=== PATIENT | female | born 1970 | race Caucasian/White ===

== ENCOUNTER 2016-11-20 05:56 | Day surgery (SDC) | payer BC ==
[2016-11-20] MEDS ORDERED: Lactated Ringers 1,000 ML IV SCH (06:30)
[2016-11-20 06:45] VITALS: O2SAT 96
[2016-11-20] MEDS ORDERED: DIPRIVAN 200 MG/20 ML IV ONE (08:00)
[2016-11-20] MEDS ORDERED: Ephedrine Sulfate 50 MG/ML IV ONE (08:00)
[2016-11-20] MEDS ORDERED: SUBLIMAZE 100 MCG/2 ML IV ONE (08:00)
[2016-11-20] MEDS ORDERED: Versed 2 MG/2 ML Injection IV ONE (08:00)
[2016-11-20] MEDS ORDERED: Lactated Ringers 1,000 ML IV ONE (08:02)
--- NOTE | 2016-11-20 09:31 | OP ---
SURGERY DATE/TIME: 11/20/2016 0739 PREOPERATIVE DIAGNOSIS: Follow up history of colon polyps. POSTOPERATIVE DIAGNOSES: 1) Sigmoid colon polyp. 2) Poor bowel prep. PROCEDURE: Colonoscopy. SURGEON: Shahzad Salvador M.D. ANESTHESIA: MAC by Tate Alejandre CRNA. ESTIMATED BLOOD LOSS: Minimal. SPECIMENS: Hot forceps polypectomy of sigmoid colon polyp x1. DESCRIPTION OF PROCEDURE: After informed written consent was obtained, the patient was taken to the endoscopy suite. She underwent monitored anesthesia and digital rectal exam showed normal sphincter tone and no internal lesions. The scope was inserted in the rectum and sequentially the entire colonic mucosa was traversed. The level of cecum was reached and verified with direct visualization of ileocecal valve. Upon withdrawal careful mucosal inspection revealed areas of poor bowel prep with semi-solid stool and liquid stool and then there were other areas that were fairly well clear. There were no obvious mucosal abnormalities until I reached the distal sigmoid colon. There was a small sessile polyp which was removed in its entirety with hot forceps with good hemostasis and entire removal of the lesions. Prior to withdrawal retroflexion showed no internal lesions. The scope was removed and the patient was transferred to the recovery room in excellent condition.
[2016-11-20 09:32] VITALS: BP 103/59; PULSE 52
== END 2016-11-20 09:35 | disposition home or self-care (01) ==
LOC: SDC 05:56
PROVIDERS: ATTEND Family Medicine
PROC: 0DBN8ZX Excision of Sigmoid Colon, Via Natural or Artificial Opening Endoscopic, Diagnostic (ICD-10-PCS; principal; 2016-11-20)
DX: D12.5 Benign neoplasm of sigmoid colon (principal); Z86.010 Personal history of colon polyps
CPT/HCPCS: 00810; 36415; 88305; J2250; J2704; J3010

== ENCOUNTER 2018-02-22 01:39 | Emergency (ER) | payer BC ==
[2018-02-22] MEDS ORDERED: Sodium Chloride 0.9% 1000 ML 1,000 ML IV STA (01:59)
[2018-02-22 02:06] VITALS: BP 105/66; PULSE 75; O2SAT 98
--- NOTE | 2018-02-22 02:10 | ERPHSYRPT ---
- History of Present Illness Time Seen by Provider: 02/22/18 02:08 Source: patient Exam Limitations: no limitations Patient Subjective Stated Complaint: feeling poorly since friday.. has had a migraine and generalized numbness. Triage Nursing Assessment: alert and oriented. concerned about numbness since gerring a migraine on friday.. concerned becaouse of hx of family illnesses. neuro intact. ELÍAS. denies N/V. states stopped taking her nerve pill 3 weeks ago. Physician History: 47-year-old female came to the emergency room with complaining of generalized weakness, left side numbness in the hand and feet, and headache. Patient has not been feeling well for last 2-3 weeks and states that she has a lots of stressors at home including her mom's health. She is also complaining of frequency of urination. She denies any chest pain, nausea, vomiting or diarrhea. Timing/Duration: day(s) (3 days) Severity: mild Character of Deficits: altered sensation, LUE Deficits: no difficulties Baseline/Normal Cognition: alert oriented x 3 Current Cognition: alert oriented x 3 Associated Symptoms: fatigue, weakness, paresthesia, headache Allergies/Adverse Reactions: hydrocodone bitartrate [From Vicodin] Adverse Reaction (Mild, Verified 11/20/16 06:31) Nausea and Vomiting Home Medications: Solifenacin Succinate [Vesicare] 10 mg PO DAILY 11/18/16 [History] Varenicline Tartrate [Chantix] 0.5 mg PO BID 11/18/16 [History] Hx Tetanus, Diphtheria Vaccination/Date Given: No Hx Influenza Vaccination/Date Given: No Hx Pneumococcal Vaccination/Date Given: Yes - Review of Systems Constitutional: No Fever, No Chills Eyes: No Symptoms Ears, Nose, & Throat: No Symptoms Respiratory: No Cough, No Dyspnea Cardiac: No Chest Pain, No Edema, No Syncope Abdominal/Gastrointestinal: No Abdominal Pain, No Nausea, No Vomiting, No Diarrhea Genitourinary Symptoms: No Dysuria Musculoskeletal: No Back Pain, No Neck Pain Skin: No Rash Neurological: No Dizziness, No Focal Weakness, No Sensory Changes Psychological: No Symptoms Endocrine: No Symptoms All Other Systems: Reviewed and Negative - Past Medical History Pertinent Past Medical History: Yes Neurological History: No Pertinent History ENT History: No Pertinent History Cardiac History: No Pertinent History Respiratory History: No Pertinent History Endocrine Medical History: No Pertinent History Musculoskeletal History: No Pertinent History GI Medical History: GERD, Polyps, Ulcer, Other History: No Pertinent History Psycho-Social History: No Pertinent History Female Reproductive Disorders: Abnormal Uterine Bleeding Other Medical History: R KNEE SURGERY 2013 - Past Surgical History Past Surgical History: Yes Neuro Surgical History: No Pertinent History Cardiac: No Pertinent History Respiratory: No Pertinent History Gastrointestinal: Cholecystectomy Genitourinary: No Pertinent History Musculoskeletal: Orthopedic Surgery Female Surgical History: Hysterectomy Other Surgical History: hiatal hernia repair. right knee reconstructions - Social History Smoking Status: Current every day smoker How long have you smoked: 22yrs Exposure to second hand smoke: No Drug Use: none Patient Lives Alone: No Significant Family History: no pertinent family hx - Female History Hx Now: No - Nursing Vital Signs Nursing Vital Signs: Initial Vital Signs Temperature 98.4 F 02/22/18 01:56 Pulse Rate 75 02/22/18 01:56 Respiratory Rate 18 02/22/18 01:56 Blood Pressure 105/66 02/22/18 01:56 O2 Sat by Pulse Oximetry 98 02/22/18 01:56 Pain Scale Pain Intensity 5 - Tate Coma Scale Best Eye Response (Tate): (4) open spontaneously Best Verbal Response (Tate): (5) oriented Best Motor Response (Mario Alberto): (6) obeys commands Tate Total: 15 - Physical Exam General Appearance: no apparent distress, alert Eye Exam: bilateral eye: PERRL, EOMI Ears, Nose, Throat Exam: normal ENT inspection, moist mucous membranes Neck Exam: normal inspection, non-tender, supple Respiratory: normal breath sounds, lungs clear, airway intact, No respiratory distress Cardiovascular: regular rate/rhythm, No edema Gastrointestinal: soft, No tenderness, No distention Back Exam: normal inspection Extremity Exam: normal inspection, No pedal edema 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, 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: tongue midline Coordination/Gait: normal finger to nose, normal gait Skin Exam: normal color, warm, dry, No rash SpO2: 98 Oxygen Delivery: Room Air - Course Nursing assessment & vital signs reviewed: Yes - CT Exams Head CT Interpretation: Tele-radiologist Report (no acute abnormality) Ordered Tests: Active Orders 24 hr Category Date Time Status EKG-ER Only STAT Care 02/22/18 01:59 Active HEAD WITHOUT CONTRAST [CT] Stat Exams 02/22/18 02:00 Taken CBC W DIFF Stat Lab 02/22/18 02:11 Completed CMP Stat Lab 02/22/18 02:11 Completed CULTURE,URINE Stat Lab 02/22/18 03:34 Received MAGNESIUM Stat Lab 02/22/18 02:11 Completed TROPONIN Stat Lab 02/22/18 02:11 Completed UA W/ MICROSCOPIC Stat Lab 02/22/18 03:34 Completed Medication Summary Generic Name Dose Route Start Last Admin Trade Name Freq PRN Reason Stop Dose Admin Ceftriaxone Sodium/Dextrose 1 g in 50 mls @ 100 mls/hr 02/22/18 03:52 Rocephin 1 Gm-D5w 50 Ml Bag IV 02/22/18 04:21 STAT STA Discontinued Medications Generic Name Dose Route Start Last Admin Trade Name Freq PRN Reason Stop Dose Admin Sodium Chloride 1,000 mls @ 999 mls/hr 02/22/18 01:59 02/22/18 02:15 Sodium Chloride 0.9% 1000 Ml IV 02/22/18 02:59 999 mls/hr .Q1H1M STA Administration Sodium Chloride Confirm 02/22/18 02:14 Sodium Chloride 0.9% 1000 Ml Administered 02/22/18 02:15 Dose 1,000 mls @ ud .ROUTE .STK-MED ONE Lab/Rad Data: Laboratory Result Diagrams 02/22/18 02:11 02/22/18 02:11 Laboratory Results 02/22/18 02/22/18 02/22/18 Range/Units 03:34 02:11 02:11 WBC (4.0-10.5) K/mm3 RBC (4.1-5.4) M/mm3 Hgb (12.0-16.0) gm/dl Hct (35-47) % MCV (78-100) fl MCH (26-32) pg MCHC (32-36) g/dl RDW (11.5-14.0) % Plt Count (150-450) K/mm3 MPV (6-9.5) fl Gran % (36.0-66.0) % Eos # (Auto) (0-0.5) Absolute Lymphs (auto) (1.0-4.6) Absolute Monos (auto) (0.0-1.3) Lymphocytes % (24.0-44.0) % Monocytes % (0.0-12.0) % Eosinophils % (0.00-5.0) % Basophils % (0.0-0.4) % Absolute Granulocytes (1.4-6.9) Basophils # (0-0.4) Sodium 142 (137-145) mmol/L Potassium 4.0 (3.5-5.1) mmol/L Chloride 104 (98-107) mmol/L Carbon Dioxide 27 (22-30) mmol/L Anion Gap 14.8 (5-15) MEQ/L BUN 13 (7-17) mg/dL Creatinine 0.63 (0.52-1.04) mg/dL Estimated GFR > 60.0 ML/MIN Glucose 105 (74-106) mg/dL Calcium 9.5 (8.4-10.2) mg/dL Magnesium 2.2 (1.6-2.3) mg/dL Total Bilirubin 0.20 (0.2-1.3) mg/dL AST 19 (14-36) U/L ALT 17 (0-35) U/L Alkaline Phosphatase 112 (38-126) U/L Troponin I < 0.012 (0.000-0.034) ng/mL Serum Total Protein 7.4 (6.3-8.2) g/dL Albumin 4.3 (3.5-5.0) g/dL Ur Collection Type VOID Urine Color YELLOW (YELLOW) Urine Appearance CLEAR (CLEAR) Urine pH 6.0 (5-6) Ur Specific [place] 1.020 (1.005-1.025) Urine Protein NEGATIVE (Negative) Urine Ketones NEGATIVE (NEGATIVE) Urine Blood 50 (0-5) Bj/ul Urine Nitrite NEGATIVE (NEGATIVE) Urine Bilirubin NEGATIVE (NEGATIVE) Urine Urobilinogen NORMAL (0-1) mg/dL Ur Leukocyte Esterase NEGATIVE (NEGATIVE) Urine Microscopic RBC 2-5 (0-2) /HPF Urine Microscopic WBC 2-5 (0-5) /HPF Ur Epithelial Cells MODERATE (FEW) /HPF Urine Bacteria MODERATE (NEGATIVE) /HPF Urine Mucus MODERATE (NEGATIVE) /HPF Urine Culture Reflexed YES (NO) Urine Glucose NEGATIVE (NEGATIVE) mg/dL Specimen Received 02/22/18 0335 02/22/18 Range/Units 02:11 WBC 8.8 (4.0-10.5) K/mm3 RBC 4.34 (4.1-5.4) M/mm3 Hgb 13.6 (12.0-16.0) gm/dl Hct 41.0 (35-47) % MCV 94.5 (78-100) fl MCH 31.3 (26-32) pg MCHC 33.2 (32-36) g/dl RDW 12.7 (11.5-14.0) % Plt Count 221 (150-450) K/mm3 MPV 10.7 H (6-9.5) fl Gran % 55.6 (36.0-66.0) % Eos # (Auto) 0.13 (0-0.5) Absolute Lymphs (auto) 2.98 (1.0-4.6) Absolute Monos (auto) 0.76 (0.0-1.3) Lymphocytes % 34.0 (24.0-44.0) % Monocytes % 8.7 (0.0-12.0) % Eosinophils % 1.5 (0.00-5.0) % Basophils % 0.2 (0.0-0.4) % Absolute Granulocytes 4.88 (1.4-6.9) Basophils # 0.02 (0-0.4) Sodium (137-145) mmol/L Potassium (3.5-5.1) mmol/L Chloride (98-107) mmol/L Carbon Dioxide (22-30) mmol/L Anion Gap (5-15) MEQ/L BUN (7-17) mg/dL Creatinine (0.52-1.04) mg/dL Estimated GFR ML/MIN Glucose (74-106) mg/dL Calcium (8.4-10.2) mg/dL Magnesium (1.6-2.3) mg/dL Total Bilirubin (0.2-1.3) mg/dL AST (14-36) U/L ALT (0-35) U/L Alkaline Phosphatase (38-126) U/L Troponin I (0.000-0.034) ng/mL Serum Total Protein (6.3-8.2) g/dL Albumin (3.5-5.0) g/dL Ur Collection Type Urine Color (YELLOW) Urine Appearance (CLEAR) Urine pH (5-6) Ur Specific [place] (1.005-1.025) Urine Protein (Negative) Urine Ketones (NEGATIVE) Urine Blood (0-5) Jb/ul Urine Nitrite (NEGATIVE) Urine Bilirubin (NEGATIVE) Urine Urobilinogen (0-1) mg/dL Ur Leukocyte Esterase (NEGATIVE) Urine Microscopic RBC (0-2) /HPF Urine Microscopic WBC (0-5) /HPF Ur Epithelial Cells (FEW) /HPF Urine Bacteria (NEGATIVE) /HPF Urine Mucus (NEGATIVE) /HPF Urine Culture Reflexed (NO) Urine Glucose (NEGATIVE) mg/dL Specimen Received - Progress Progress: improved Counseled pt/family regarding: lab results, diagnosis, need for follow-up, rad results - Departure Time of Disposition: 03:54 Departure Disposition: Home Clinical Impression: Stress and adjustment reaction UTI (urinary tract infection) Qualifiers: Urinary tract infection type: acute pyelonephritis Qualified Code(s): N10 - Acute pyelonephritis Condition: Stable Critical Care Time: No Referrals: MAYNOR MANUEL MD [Primary Care Provider] - Instructions: Urinary Tract Infections in Adults, Anxiety, Adult (DC) Additional Instructions: URINARY TRACT INFECTION 1. You will need to drink plenty of fluids in order to keep your urinary system flushed. These fluids should mainly consist of water and juices. 2. Take medications as directed. You need to completely finish any antiobiotic prescription given. 3. Try to avoid coffee, tea, alcohol, and seasoned foods as they may cause bladder irritation. 4. If signs and symptoms persist after 3-4 days, you will need to follow up with your family physician. 5. Female Patients: A. Avoid intercourse for 3-4 days. B. Empty bladder before and after intercourse to reduce risk of re- infection. C. After emptying bladder, wipe from front to back to reduce the risk of re- infection. DES TEE SHERON was seen on 02/22/18 n the Emergency Room. At that time you were treated for an emergent condition, during your visit Laboratory, Radiology and/or other procedures may have been ordered. It is very important that you follow-up with your Primary Care Physician MAYNOR MANUEL within the next 24-48 hours to review your Emergency Room visit and the final results of testing that was ordered. Some test results such as Urine Cultures, Blood Cultures, and other cultures if ordered will not be finalized for 24-48 hours. If you do not have a Primary Care Provider please call the medical records department at [phone] to obtain a copy of your results or you may sign into our patient portal to obtain these results by visiting us @ [email or web address] and completing the following steps: 1. Click on the Patient Portal link 2. Click the Patient Self Enrollment Link to complete the enrollment form and entering your 3. Once the enrollment form is completed you will receive an email with a temporary ID and password at the email address you provided. 4. Next choose a user name and password. Your user name must be at least 4 characters long and your password must be at least 4 characters long. 5. Choose a security question from the list and provide your answer to the question. If you already have signed into the Health Portal you may access your Health Care Information 28/04 by the following steps: 1. Login to our website @ [email or web address] 2. Enter your original user name and password. FAQS The [facility] Health Portal is an online tool that contains your Lab Results, Radiology Reports, Visit History, Discharge Instructions and Health Summary Lab and Radiology Results will not be available for 72 hours on the portal. The Portal is a secure site, passwords are encryted and URLs are re-written so they cannot be copied and pasted. You and authorized family members are the only ones who can access your Portal. Also there is a timeout feature that protects your information if you leave the Portal page open. If you have technical difficulty please use the Contact Us link on the page this will allow you to submit any questions you have regarding the Portal or you may contact the Medical Record Department at [phone]. Prescriptions: Smz/Tmp Ds Tablet [Bactrim Ds Tablet] 1 udtab PO BID #20 tablet ALPRAZolam [Xanax ER 0.5MG] 0.5 mg PO QHS #30 tablet
[2018-02-22] MEDS ORDERED: Sodium Chloride 0.9% 1000 ML 1,000 ML ONE (02:14)
[2018-02-22 02:18] LABS: BASOPHIL % 0.2 % (0.0-0.4); Basophil (Absolute #) 0.02 (0-0.4); Eosinophil % 1.5 % (0.00-5.0); Eosinophil (Absolute #) 0.13 (0-0.5); Granulocyte Absolute (ANC) 4.88 (1.4-6.9); Granulocytes % 55.6 % (36.0-66.0); Hemoglobin 13.6 gm/dl (12.0-16.0); Lymphocyte (Absolute #) 2.98 (1.0-4.6); Mean Cell Volume 94.5 fl (78-100); Mean Corpuscular Hemoglobin 31.3 pg (26-32); Mean Corpuscular Hgb Concent. 33.2 g/dl (32-36); Mean Platelet Volume 10.7 fl (6-9.5); Monocyte (Absolute #) 0.76 (0.0-1.3); Monocytes % 8.7 % (0.0-12.0); Platelet Count 221 K/mm3 (150-450); Red Blood Count 4.34 M/mm3 (4.1-5.4); Red Cell Distribution Width 12.7 % (11.5-14.0); White Blood Count 8.8 K/mm3 (4.0-10.5)
[2018-02-22 02:39] LABS: ALBUMIN 4.3 g/dL (3.5-5.0); ALKALINE PHOSPHATASE 112 U/L (38-126); ANION GAP 14.8 MEQ/L (5-15); BLOOD UREA NITROGEN 13 mg/dL (7-17); CHLORIDE 104 mmol/L (98-107); Calcium 9.5 mg/dL (8.4-10.2); Carbon Dioxide 27 mmol/L (22-30); Creatinine 1 0.63 mg/dL (0.52-1.04); Glucose 105 mg/dL (74-106); SGOT/AST 19 U/L (14-36); SGPT/ALT 17 U/L (0-35); SODIUM 142 mmol/L (137-145); Total Protein 7.4 g/dL (6.3-8.2)
[2018-02-22 03:47] LABS: Appearance CLEAR (CLEAR); Bacteria MODERATE /HPF (NEGATIVE); Bilirubin NEGATIVE (NEGATIVE); Blood 50 Ery/ul (0-5); Epithelial Cells MODERATE /HPF (FEW); Glucose NEGATIVE (NEGATIVE); Ketones NEGATIVE (NEGATIVE); Leukocyte Esterase NEGATIVE (NEGATIVE); Mucus MODERATE /HPF (NEGATIVE); Nitrite NEGATIVE (NEGATIVE); Protein,Urine Dip NEGATIVE (Negative); Urobilinogen NORMAL mg/dL (0-1)
[2018-02-22] MEDS ORDERED: ROCEPHIN 1 Gm-D5w 50 ml Bag** 1 G/50 ML IVPB IV STA (03:52)
[2018-02-22] MEDS ORDERED: Ativan 2 MG/1 ML VIAL IV ONE (03:58)
[2018-02-22] MEDS ORDERED: Ativan 2 MG/1 ML VIAL ONE (04:01)
[2018-02-22] MEDS ORDERED: ROCEPHIN 1 Gm-D5w 50 ml Bag** 1 G/50 ML IVPB IV ONE (04:01)
--- NOTE | 2018-02-22 12:24 | XRAY ---
Indication: Hand and leg numbness. Blurred vision. Multiple contiguous axial images obtained through the head without contrast. Comparison: February 08, 2011. Again normal appearing brain parenchyma, ventricles, and bony calvarium. Visualized paranasal sinuses and mastoid air cells are clear. Impression: Normal CT head without contrast exam. Comment: Preliminary interpretation was made by [facility]. No discrepancy. CTDI 69.11
== END 2018-02-22 04:48 | disposition home or self-care (01) ==
LOC: ED 01:39
DX: F43.9 Reaction to severe stress, unspecified (principal); F43.20 Adjustment disorder, unspecified; N10 Acute pyelonephritis; R20.0 Anesthesia of skin; R51 Headache; R35.0 Frequency of micturition; R53.1 Weakness; Z79.899 Other long term (current) drug therapy
CPT/HCPCS: 36000; 36415; 70450; 80053; 81000; 83735; 84484; 85025; 87077; 87086; 87186; 93005; 96360; 96374; 96375; 99284; J0696; J2060

== ENCOUNTER 2019-08-25 06:23 | Day surgery (SDC) | payer BC ==
[2019-08-25] MEDS ORDERED: Lactated Ringers 1,000 ML IV ONE (06:56)
[2019-08-25] MEDS ORDERED: Lactated Ringers 1,000 ML IV SCH (07:00)
[2019-08-25 07:21] LABS: BASOPHIL % 0.1 % (0.0-0.4); Basophil (Absolute #) 0.01 (0-0.4); Eosinophil (Absolute #) 0.07 (0-0.5); Hematocrit 39.6 % (35-47); Hemoglobin 12.8 gm/dl (12.0-16.0); Lymphocyte (Absolute #) 2.44 (1.0-4.6); Lymphocytes % 35.4 % (24.0-44.0); Mean Cell Volume 97.1 fl (78-100); Mean Corpuscular Hemoglobin 31.3 pg (26-32); Mean Corpuscular Hgb Concent. 32.3 g/dl (32-36); Mean Platelet Volume 10.6 fl (6-9.5); Monocyte (Absolute #) 0.47 (0.0-1.3); Monocytes % 6.8 % (0.0-12.0); Neutrophil % 56.7 % (36.0-66.0); Platelet Count 219 K/mm3 (150-450); Red Blood Count 4.08 M/mm3 (4.1-5.4); Red Cell Distribution Width 13.1 % (11.5-14.0); White Blood Count 6.9 K/mm3 (4.0-10.5)
[2019-08-25] MEDS ORDERED: DIPRIVAN 200 MG/20 ML IV ONE ×2 (07:56→08:28)
[2019-08-25] MEDS ORDERED: Ketamine HCl 50 MG/ML ONE (07:57)
[2019-08-25 08:56] LABS: ALKALINE PHOSPHATASE 93 U/L (38-126); ANION GAP 11.4 MEQ/L (5-15); BLOOD UREA NITROGEN 7 mg/dL (7-17); CHLORIDE 109 mmol/L (98-107); Calcium 9.2 mg/dL (8.4-10.2); Carbon Dioxide 28 mmol/L (22-30); Cholesterol 166 mg/dL (50-200); Creatinine 1 0.54 mg/dL (0.52-1.04); Glucose 103 mg/dL (74-106); HDL CHOLESTEROL 23 mg/dL (40-60); LDL, DIRECT 106 mg/dL (30-100); Potassium 3.9 mmol/L (3.5-5.1); Risk Ratio 7.2; SGOT/AST 20 U/L (14-36); SGPT/ALT 13 U/L (0-35); SODIUM 144 mmol/L (137-145); TRIGLYCERIDE 224 mg/dL (30-150); Total Protein 7.1 g/dL (6.3-8.2)
[2019-08-25 09:11] VITALS: BP 120/78; PULSE 60; O2SAT 96
--- NOTE | 2019-08-25 10:04 | OP ---
SURGERY DATE/TIME: 08/25/2019 0800 PREOPERATIVE DIAGNOSES: 1) Screening colonoscopy. 2) History of colon polyps. POSTOPERATIVE DIAGNOSIS: Normal colon. PROCEDURE: Colonoscopy. SURGEON: Shahzad Salvador M.D. ANESTHESIA: MAC by Mau Farris CRNA. ESTIMATED BLOOD LOSS: None. SPECIMENS: None. DESCRIPTION OF PROCEDURE: After informed written consent was obtained, the patient was taken to the endoscopy suite. She underwent monitored anesthesia and a digital rectal exam showed normal sphincter tone and no internal lesions. The scope was inserted into the rectum and sequentially the entire colonic mucosa was traversed. The level of cecum was reached and verified with direct visualization of ileocecal valve. Upon withdrawal careful mucosal inspection revealed no gross abnormalities. Retroflexion was performed prior to withdrawal and showed no internal lesions. The scope was removed and the patient was transferred to the recovery room in good condition.
[2019-08-26 09:32] LABS: FOLLICLE STIMULATING HORMONE 70.3 mIU/mL; Lutenizing Hormone 42.6 mIU/mL
== END 2019-08-25 09:16 | disposition home or self-care (01) ==
LOC: SDC 06:23
PROVIDERS: ATTEND Family Medicine
DX: Z12.11 Encounter for screening for malignant neoplasm of colon (principal); Z86.010 Personal history of colon polyps; J44.9 Chronic obstructive pulmonary disease, unspecified; K44.9 Diaphragmatic hernia without obstruction or gangrene; K21.9 Gastro-esophageal reflux disease without esophagitis; D64.9 Anemia, unspecified; F41.8 Other specified anxiety disorders
CPT/HCPCS: 36415; 80053; 80061; 83001; 83002; 83036; 83721; 84403; 84443; 85025; 94250; J2704

== ENCOUNTER 2019-12-20 20:10 | Emergency (ER) | payer BC ==
--- NOTE | 2019-12-20 20:15 | ERPHSYRPT ---
- History of Present Illness Time Seen by Provider: 12/20/19 20:15 Source: patient Exam Limitations: no limitations Physician History: This is a 49-year-old female who presents with left flank pain that radiates down into her left groin. The pain started approximately 2-3 o'clock this morning. The pain is gotten progressively worse throughout the day. Patient states that she has had a history of kidney stones in the past. She states that she is allergic to ibuprofen (bleeding ulcer) but she has taken Toradol injections in the past without any problems. Patient states that she prefers not to use narcotic pain medicine. Denies chest pain she denies nausea vomiting diarrhea. Timing/Duration: today Method of Injury: other (No injury) Quality: aching, throbbing Severity of Pain-Max: moderate Severity of Pain-Current: moderate Associated Symptoms: nausea, No vomiting Previous symptoms: same symptoms as today Allergies/Adverse Reactions: ibuprofen Allergy (Verified 12/20/19 20:33) Home Medications: Bupropion HCl Xl 150 mg [Wellbutrin XL 150 MG] 150 mg PO BID 08/17/19 [ History] Escitalopram Oxalate 10 mg [Lexapro 10 MG] 10 mg PO DAILY 08/17/19 [History] Hx Tetanus, Diphtheria Vaccination/Date Given: Yes Hx Influenza Vaccination/Date Given: Yes Hx Pneumococcal Vaccination/Date Given: No - Review of Systems Constitutional: No Symptoms Eyes: No Symptoms Ears, Nose, & Throat: No Symptoms Respiratory: No Symptoms Cardiac: No Symptoms Abdominal/Gastrointestinal: No Symptoms Genitourinary Symptoms: Flank Pain Musculoskeletal: No Symptoms Skin: No Symptoms Neurological: No Symptoms Psychological: No Symptoms Endocrine: No Symptoms Hematologic/Lymphatic: No Symptoms Immunological/Allergic: No Symptoms All Other Systems: Reviewed and Negative - Past Medical History Pertinent Past Medical History: Yes Neurological History: No Pertinent History ENT History: No Pertinent History Cardiac History: No Pertinent History Respiratory History: No Pertinent History Endocrine Medical History: No Pertinent History Musculoskeletal History: No Pertinent History GI Medical History: GERD, Hernia, Polyps, Ulcer, Other History: No Pertinent History, Other Psycho-Social History: No Pertinent History Female Reproductive Disorders: Abnormal Uterine Bleeding Other Medical History: R KNEE SURGERY 2012-"reconstruction of knee cap" - Past Surgical History Past Surgical History: Yes Neuro Surgical History: No Pertinent History Cardiac: No Pertinent History Respiratory: No Pertinent History Gastrointestinal: Cholecystectomy Genitourinary: No Pertinent History Musculoskeletal: Orthopedic Surgery Female Surgical History: Hysterectomy Other Surgical History: hiatal hernia repair. right knee reconstructions, right rotator cuff surgery, colonoscopy and polypectomy - Social History Smoking Status: Current every day smoker How long have you smoked: 30 years Exposure to second hand smoke: Yes Drug Use: none Patient Lives Alone: No Significant Family History: no pertinent family hx - Nursing Vital Signs Nursing Vital Signs: Initial Vital Signs Pulse Rate 84 12/20/19 20:18 Blood Pressure 136/97 12/20/19 20:18 O2 Sat by Pulse Oximetry 97 12/20/19 20:18 Pain Scale Pain Intensity 6 - Physical Exam General Appearance: mild distress, alert, anxiety Eye Exam: PERRL/EOMI, eyes nml inspection Ears, Nose, Throat Exam: normal ENT inspection, moist mucous membranes Neck Exam: normal inspection, non-tender, supple, full range of motion Respiratory Exam: normal breath sounds, lungs clear, airway intact, No chest tenderness, No respiratory distress Cardiovascular Exam: regular rate/rhythm, normal heart sounds, normal peripheral pulses Gastrointestinal Exam: soft, normal bowel sounds, tenderness (Quadrant into the left groin), No guarding, No rebound Pelvic Exam: not done Rectal Exam: not done Back Exam: normal inspection, normal range of motion, CVA tenderness (Left), No vertebral tenderness Extremity Exam: normal inspection, normal range of motion, pelvis stable Neurologic Exam: alert, oriented x 3, cooperative, cornetist II-XII nml as tested, normal mood/affect, nml cerebellar function, nml station & gait Skin Exam: normal color, warm, dry Lymphatic Exam: No adenopathy SpO2 Interpretation: normal O2 Delivery: Room Air - Course Nursing assessment & vital signs reviewed: Yes Ordered Tests: Active Orders 24 hr Category Date Time Status ABDOMEN AND PELVIS W/0 CONTRAS [CT] Stat Exams 12/20/19 20:26 Taken UA W/RFX UR CULTURE Stat Lab 12/20/19 20:30 Completed Medication Summary Discontinued Medications Generic Name Dose Route Start Last Admin Trade Name Freq PRN Reason Stop Dose Admin Hydromorphone HCl 0.5 mg 12/20/19 21:29 12/20/19 21:34 Hydromorphone 1 Mg/Ml Ampule IM 12/20/19 21:30 0.5 mg STAT ONE Administration Hydromorphone HCl Confirm 12/20/19 21:32 Hydromorphone 1 Mg/Ml Ampule Administered 12/20/19 21:33 Dose 1 mg .ROUTE .STK-MED ONE Ketorolac Tromethamine 60 mg 12/20/19 20:28 12/20/19 20:37 Toradol 30 Mg Injection IM 12/20/19 20:29 60 mg STAT ONE Administration Ketorolac Tromethamine Confirm 12/20/19 20:33 Toradol 30 Mg Injection Administered 12/20/19 20:34 Dose 60 mg .ROUTE .STK-MED ONE Ondansetron HCl 4 mg 12/20/19 20:26 12/20/19 20:39 Zofran Odt 4 Mg PO 12/20/19 20:27 4 mg STAT ONE Administration Ondansetron HCl Confirm 12/20/19 20:33 Zofran Odt 4 Mg Administered 12/20/19 20:34 Dose 4 mg .ROUTE .STK-MED ONE Lab/Rad Data: Laboratory Results 12/20/19 Range/Units 20:30 Urine Color STRAW (YELLOW) Urine Appearance CLEAR (CLEAR) Urine pH 7.0 (5-6) Ur Specific [place] 1.002 (1.005-1.025) Urine Protein NEGATIVE (Negative) Urine Ketones NEGATIVE (NEGATIVE) Urine Blood LARGE (0-5) Bj/ul Urine Nitrite NEGATIVE (NEGATIVE) Urine Bilirubin NEGATIVE (NEGATIVE) Urine Urobilinogen NEGATIVE (0-1) mg/dL Ur Leukocyte Esterase NEGATIVE (NEGATIVE) Urine WBC (Auto) 3-5 (0-5) /HPF Urine RBC (Auto) 3-5 (0-2) /HPF U Epithel Cells (Auto) NONE (FEW) /HPF Urine Mucus (Auto) SLIGHT (NEGATIVE) /HPF Urine Culture Reflexed NO (NO) Urine Glucose NEGATIVE (NEGATIVE) mg/dL - Progress Progress: improved, pain not gone completely Progress Note: 12/20/19 21:50 CAT scan of the abdomen and pelvis without contrast reveals a distal left ureteral stone measuring approximately 2 to 3 mm. Is just proximal to the UV J. There is minimal hydroureter and mild hydronephrosis present. Counseled pt/family regarding: lab results, diagnosis, need for follow-up, rad results - Departure Departure Disposition: Home Clinical Impression: Ureterolithiasis Condition: Stable Critical Care Time: No Referrals: MAYNOR MANUEL MD [Primary Care Provider] - Additional Instructions: Drink plenty of fluids. Follow-up with urologist or your primary care physician for further management. Prescriptions: Hydrocodone/APAP 5/325 [Tangier 5/325 mg] 1 each PO Q8H PRN PRN #8 tablet MDD 3 PRN Reason: Pain
[2019-12-20] MEDS ORDERED: ZOFRAN ODT 4 MG PO ONE (20:26)
[2019-12-20] MEDS ORDERED: TORAdol 30 mg Injection IM ONE (20:28)
[2019-12-20] MEDS ORDERED: TORAdol 30 mg Injection ONE (20:33)
[2019-12-20] MEDS ORDERED: ZOFRAN ODT 4 MG ONE (20:33)
[2019-12-20 20:44] LABS: Appearance CLEAR (CLEAR); Bilirubin NEGATIVE (NEGATIVE); Blood LARGE Ery/ul (0-5); Glucose NEGATIVE (NEGATIVE); Ketones NEGATIVE (NEGATIVE); Leukocyte Esterase NEGATIVE (NEGATIVE); Mucus SLIGHT /HPF (NEGATIVE); Nitrite NEGATIVE (NEGATIVE); Protein,Urine Dip NEGATIVE (Negative); Specific Gravity 1.002 (1.005-1.025); Urobilinogen NEGATIVE mg/dL (0-1)
[2019-12-20 21:08] VITALS: O2SAT 95
[2019-12-20] MEDS ORDERED: Hydromorphone 1 mg/ml Ampule IM ONE (21:29)
[2019-12-20] MEDS ORDERED: Hydromorphone 1 mg/ml Ampule ONE (21:32)
[2019-12-20 22:12] VITALS: BP 89/55; PULSE 69
[2019-12-20] MEDS ORDERED: NORCO 5/325 MG PO ONE (22:18)
[2019-12-20] MEDS ORDERED: NORCO 5/325 MG ONE (22:26)
--- NOTE | 2019-12-21 08:44 | XRAY ---
Indication: Left flank pain. Hematuria. Multiple contiguous axial images obtained through the abdomen and pelvis without contrast as ordered. Comparison: June 24, 2012. Lung bases demonstrates minimal bilateral dependent atelectasis with stable right base calcified granuloma. No infiltrate or effusion. Heart is not enlarged. New small hiatal hernia. Noncontrasted stomach and bowel loops appear nonobstructed. Stable descending duodenum diverticulum. Normal appendix. Minimal sigmoid diverticulosis. Stable calcified splenic granulomas, cholecystectomy, and hysterectomy. No free fluid/air. New 2-3 mm distal left ureter calculus (image [id number]). Proximal left ureter is slightly prominent and there is mild hydronephrosis consistent with partial obstructive uropathy. No perinephric fluid. Additional left lower renal punctate calculus. Remaining liver, pancreas, spleen, adrenal glands, kidneys, ureters, and bladder appear unremarkable for noncontrast exam. There remains minimal aortoiliac calcifications without AAA. Osseous structures intact. Impression: 1. New 2-3 mm distal left ureter calculus producing partial obstruction. Additional left renal micro-calculus. 2. New small hiatal hernia. Stable duodenal diverticulum, sigmoid diverticulosis, and evidence for old granulomatous disease. 2. Remaining CT abdomen/pelvis without contrast exam is negative.
== END 2019-12-20 22:39 | disposition home or self-care (01) ==
LOC: ED 20:10
DX: N20.1 Calculus of ureter (principal); R10.9 Unspecified abdominal pain; Z79.899 Other long term (current) drug therapy; Z87.442 Personal history of urinary calculi
CPT/HCPCS: 74176; 81001; 96372; 99284; J1170; J1885; Q0162; A9270-GY

== ENCOUNTER 2020-04-10 08:26 | Day surgery (SDC) | payer BC ==
--- NOTE | 2020-04-07 10:37 | HP ---
DATE OF SURGERY: 04/10/2020 HISTORY OF PRESENT ILLNESS: The patient is a 49 year old has prior history of hiatal hernia repair by Dr. Wang years ago. She has had some dysphagia. It felt like food is getting stuck in distal esophagus area and some epigastric pain. She is in need of follow up upper endoscopy possible dilatation. PAST MEDICAL HISTORY: Chronic stomach problems. She said she had prior history of ulcers. PAST SURGICAL HISTORY: Hiatal hernia repair per Dr. Wang in the past. Cholecystectomy. Hysterectomy. Knee surgery. Colonoscopy in the past. MEDICATIONS: None on a regular basis according to the patient. It looks like she has been on citalopram and Protonix in the past. ALLERGIES: SENSITIVE TO IBUPROFEN. FAMILY HISTORY: Breast cancer. Diabetes. Hypertension. Leukemia. SOCIAL HISTORY: One pack per day smoker. Denies alcohol abuse. REVIEW OF SYSTEMS: Fourteen systems reviewed. No chest pain or palpitations currently. History of ulcers in the past. PHYSICAL EXAMINATION: GENERAL: No acute distress. HEENT: Sclerae nonicteric. NECK: No JVD. CHEST: Equal excursion, nonlabored breathing. CVS: Regular rate and rhythm. ABDOMEN: Soft, some mild tenderness epigastrium. No peritoneal signs. EXTREMITIES: No significant edema. NEURO: Alert, oriented, moving extremities symmetrically. No gross motor deficits noted. PSYCH: Appropriate mood and affect. RECTAL: Deferred timed to endoscopy exam. IMPRESSION: History of dysphagia, some epigastric pain. I feel the patient will benefit from EGD possible dilatation possible biopsy. Risks and benefits explained in detail including but not limited to bleeding or infection, risk of bowel injury or perforation possibly requiring open procedure, possibility depending on operative findings may consider upper GI test, risk of anesthesia, DVT, pulmonary embolism, pneumonia but not limited to. She understands and agrees to the planned procedure and will proceed with EGD possible biopsy possible dilatation as an outpatient.
[~2020-04-10 08:26] MED LIST: DIPRIVAN 200 MG/20 ML IV ONE; Ketamine HCl 50 MG/ML ONE; Lactated Ringers 1,000 ML IV SCH
[2020-04-10] MEDS ORDERED: Lactated Ringers 1,000 ML IV ONE ×2 (08:48→11:09)
[2020-04-10 11:45] VITALS: O2SAT 95
[2020-04-10 12:07] VITALS: BP 130/81; PULSE 65
--- NOTE | 2020-04-11 08:13 | OP ---
SURGERY DATE/TIME: 04/10/2020 1044 PREOPERATIVE DIAGNOSIS: Dysphagia. POSTOPERATIVE DIAGNOSES: 1) Mild duodenitis. 2) Mild gastritis. 3) Short segment distal gastroesophagitis versus early Wynn's, path pending. 4) Distal esophageal narrowing and spasm requiring dilatation. PROCEDURES: 1) EGD with cold biopsy of small bowel for celiac sprue. 2) Cold biopsy of antrum to evaluate for Helicobacter pylori. 3) Cold biopsy distal esophagus to evaluate for esophagitis versus early Wynn's esophagus. 4) Cold biopsy of proximal esophagus at about 17 or 18 cm area of salmon pink mucosa to evaluate for esophagitis versus Wynn's. 5) Esophageal balloon dilatation distal esophageal narrowing and spasm (size 20 balloon dilator). SURGEON: Dr. Mau Evans. ANESTHESIA: MAC. ESTIMATED BLOOD LOSS: Minimal. INDICATIONS: As noted above. Risks and benefits explained in detail and not limited to and consent obtained. DESCRIPTION OF PROCEDURE AND FINDINGS: The patient is taken to the operating room. MAC anesthesia induced. After official time out and no disagreement with planned procedure, a bite block positioned. Video gastroscope easily passed down the proximal esophagus, distal esophagus. Gastroesophageal junction about 39 cm. There was some narrowing and spasm where she was having symptoms. The scope was able to be passed down through the patent pylorus to the junction of the second and third portion of the duodenum. There was a little bit of inflammation in the proximal duodenum nothing deep enough to call an ulcer but cold biopsy taken to evaluate for path. Good hemostasis noted. Scope pulled back. There was little petechial hemorrhage in the antrum. There was some minimal to mild gastritis. Cold biopsy taken to evaluate for Helicobacter pylori. Good hemostasis noted. On retroflex the wrap appeared to be intact. It did not appear to have broken down. It appears to still be intact. No signs of any obvious ulcers or masses. The scope pulled back. Gastroesophageal junction about 40 cm. there was a couple millimeters of little salmon pink fingerlets whether this is an early distal gastroesophagitis versus old Wynn's or not cold biopsy taken in a couple areas of the fingerlets. Good hemostasis noted. Again, the distal esophagus was narrowed and had spasm. She was having symptoms here. It was felt this warranted dilatation. The scope was passed up to the more proximal esophagus about 17 or 18 cm from the incisors. There was another little patchy area of salmon pink mucosa. Whether this was some area of some old esophagitis or Wynn's from her previous changes prior to her anti-reflux procedure or not was unclear but cold biopsy taken. Good hemostasis noted. The remainder of the esophagus grossly unremarkable. The scope was passed back down into the stomach. Again, it was felt she would benefit from dilatation. Therefore the balloon catheter was carefully inserted under direct vision of the stomach, pulled back up. A size 20 balloon catheter inflated for 45 seconds first stage, size 18 for 45 seconds, size 19 stage, and then final stage size 20 balloon dilator for 2 minutes. It was then released and withdrawn. This area appeared to be more patent and the scope seemed to travel through this area much easier. The balloon catheter had been withdrawn and passed off. Good hemostasis noted. The scope is withdrawn. The patient tolerated the procedure well. There is no family available here to discuss the findings with. Should anybody have questions I can be paged.
== END 2020-04-10 11:55 | disposition home or self-care (01) ==
LOC: SDC 08:26
PROVIDERS: ATTEND Surgery
DX: K22.2 Esophageal obstruction (principal); K22.4 Dyskinesia of esophagus; K29.80 Duodenitis without bleeding; K29.70 Gastritis, unspecified, without bleeding; K20.9 Esophagitis, unspecified
CPT/HCPCS: 88305; C1726; J2704

== ENCOUNTER 2021-09-11 19:43 | Emergency (ER) | payer OTHER ==
--- NOTE | 2021-09-11 19:52 | ERPHSYRPT ---
- History of Present Illness Time Seen by Provider: 09/11/21 19:52 Source: patient Exam Limitations: no limitations Physician History: This is a 51-year-old white female with history of gastroesophageal reflux disease and is a patient of Dr. Manuel who presents with 6-day history of myalgias and arthralgias as well as a cough nausea with no vomiting abdominal cramping and a few episodes of diarrhea. Patient denies chest pain. She does not have significant shortness of breath. She has no known exposures to any individual who has tested positive for COVID-19 infection. Patient has a daughter who has somewhat similar symptoms over the same time frame. Timing/Duration: day(s) (6) Cough Quality/Degree: mild, dry cough Possible Cause: no prior episodes Modifying Factors: Improves With: coughing Associated Symptoms: cough, headache, No fever Allergies/Adverse Reactions: ibuprofen Allergy (Verified 09/11/21 19:59) Hx Tetanus, Diphtheria Vaccination/Date Given: Yes Hx Influenza Vaccination/Date Given: Yes Hx Pneumococcal Vaccination/Date Given: No Travel Risk - International Travel Have you traveled outside of the country in past 3 weeks: No - Coronavirus Screening Are you exhibiting any of the following symptoms?: Yes Symptoms: Cough: New Onset, Headaches/Body Aches/Fatigue Close contact with a COVID-19 positive Pt in past 14-21 Days: No - Review of Systems Constitutional: Weakness (Mild generalized) Eyes: No Symptoms Ears, Nose, & Throat: No Symptoms Respiratory: Cough Cardiac: No Symptoms Abdominal/Gastrointestinal: Diarrhea Genitourinary Symptoms: No Symptoms Musculoskeletal: Arthralgias, Myalgias Skin: No Symptoms Neurological: No Symptoms Psychological: No Symptoms Endocrine: No Symptoms Hematologic/Lymphatic: No Symptoms Immunological/Allergic: No Symptoms All Other Systems: Reviewed and Negative - Past Medical History Pertinent Past Medical History: Yes Neurological History: No Pertinent History ENT History: No Pertinent History Cardiac History: No Pertinent History Respiratory History: Asthma Endocrine Medical History: No Pertinent History Musculoskeletal History: No Pertinent History GI Medical History: Colorectal Cancer, GERD, Hernia, Polyps, Ulcer, Other History: Other Psycho-Social History: No Pertinent History Female Reproductive Disorders: Abnormal Uterine Bleeding Other Medical History: R KNEE SURGERY 2013-"reconstruction of knee cap" - Past Surgical History Past Surgical History: Yes Neuro Surgical History: No Pertinent History Cardiac: No Pertinent History Respiratory: No Pertinent History Gastrointestinal: Cholecystectomy Genitourinary: No Pertinent History Musculoskeletal: Orthopedic Surgery Female Surgical History: Hysterectomy Other Surgical History: hiatal hernia repair. right knee reconstructions, right rotator cuff surgery, colonoscopy and polypectomy - Social History Smoking Status: Current every day smoker How long have you smoked: 30 years Exposure to second hand smoke: Yes Drug Use: none Patient Lives Alone: No Significant Family History: no pertinent family hx - Nursing Vital Signs Nursing Vital Signs: Initial Vital Signs Temperature 99.2 F 09/11/21 20:02 Pulse Rate 82 09/11/21 20:02 Respiratory Rate 14 09/11/21 20:02 Blood Pressure 123/93 09/11/21 20:02 O2 Sat by Pulse Oximetry 94 L 09/11/21 20:02 Pain Scale Pain Intensity 6 - Physical Exam General Appearance: no apparent distress, alert Eye Exam: PERRL/EOMI, eyes nml inspection Ears, Nose, Throat Exam: normal ENT inspection, moist mucous membranes Neck Exam: normal inspection, non-tender, supple, full range of motion Respiratory Exam: normal breath sounds, lungs clear, airway intact, No chest tenderness, No respiratory distress Cardiovascular Exam: regular rate/rhythm, normal heart sounds, normal peripheral pulses Gastrointestinal/Abdomen Exam: soft, normal bowel sounds, No tenderness Pelvic Exam: not done Rectal Exam: not done Back Exam: normal inspection, normal range of motion, No CVA tenderness Extremity Exam: normal inspection, normal range of motion, pelvis stable Neurologic Exam: alert, oriented x 3, cooperative, 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, normal mood/affect, nml cerebellar function, nml station & gait, sensation nml Skin Exam: normal color, warm, dry Lymphatic Exam: No adenopathy SpO2 Interpretation: normal O2 Delivery: Room Air - Course Nursing assessment & vital signs reviewed: Yes Ordered Tests: Active Orders 24 hr Category Date Time Status IV Insertion STAT Care 09/11/21 20:20 Active CHEST 1 VIEW (PORTABLE) Stat Exams 09/11/21 20:32 Taken AMYLASE Stat Lab 09/11/21 21:00 Completed BLOOD CULTURE Stat Lab 09/11/21 21:20 Received CBC W DIFF Stat Lab 09/11/21 21:00 Completed CMP Stat Lab 09/11/21 21:00 Completed INFLUENZA A+B TINO Stat Lab 09/11/21 21:20 Completed LIPASE Stat Lab 09/11/21 21:00 Completed Lactic Acid Stat Lab 09/11/21 20:42 Completed Lactic Acid Stat Lab 09/11/21 22:46 Received [place] Screen Stat Lab 09/11/21 21:00 Completed UA W/RFX UR CULTURE Stat Lab 09/11/21 20:26 Completed Medication Summary Discontinued Medications Generic Name Dose Route Start Last Admin Trade Name Mitzi PRN Reason Stop Dose Admin Sodium Chloride 1,000 mls @ 999 mls/hr 09/11/21 20:20 09/11/21 21:53 Sodium Chloride 0.9% 1000 Ml IV 09/11/21 21:20 Infused .Q1H1M STA Infusion Sodium Chloride Confirm 09/11/21 20:48 Sodium Chloride 0.9% 1000 Ml Administered 09/11/21 20:49 Dose 1,000 mls @ ud .ROUTE .STK-MED ONE Ondansetron HCl 4 mg 09/11/21 20:20 09/11/21 20:50 Ondansetron Hcl 4 Mg/2 Ml Vial IV 09/11/21 20:21 4 mg STAT ONE Administration Ondansetron HCl Confirm 09/11/21 20:47 Ondansetron Hcl 4 Mg/2 Ml Vial Administered 09/11/21 20:48 Dose 4 mg .ROUTE .STK-MED ONE Lab/Rad Data: Laboratory Result Diagrams 09/11/21 21:00 09/11/21 21:00 Laboratory Results 09/11/21 09/11/21 09/11/21 Range/Units 21:20 21:20 21:00 WBC (4.0-10.5) K/mm3 RBC (4.1-5.4) M/mm3 Hgb (12.0-16.0) gm/dl Hct (35-47) % MCV (78-100) fl MCH (26-32) pg MCHC (32-36) g/dl RDW (11.5-14.0) % Plt Count (150-450) K/mm3 MPV (7.5-11.0) fl Gran % (36.0-66.0) % Eos # (Auto) (0-0.5) Absolute Lymphs (auto) (1.0-4.6) Absolute Monos (auto) (0.0-1.3) Lymphocytes % (24.0-44.0) % Monocytes % (0.0-12.0) % Eosinophils % (0.00-5.0) % Basophils % (0.0-0.4) % Absolute Granulocytes (1.4-6.9) Basophils # (0-0.4) Sodium (137-145) mmol/L Potassium (3.5-5.1) mmol/L Chloride (98-107) mmol/L Carbon Dioxide (22-30) mmol/L Anion Gap (5-15) MEQ/L BUN (7-17) mg/dL Creatinine (0.52-1.04) mg/dL Estimated GFR ML/MIN Glucose (74-106) mg/dL Lactic Acid (0.4-2.0) Calcium (8.4-10.2) mg/dL Total Bilirubin (0.2-1.3) mg/dL AST (14-36) U/L ALT (0-35) U/L Alkaline Phosphatase (38-126) U/L Serum Total Protein (6.3-8.2) g/dL Albumin (3.5-5.0) g/dL Amylase (30-110) U/L Lipase (23-300) U/L Urine Color (YELLOW) Urine Appearance (CLEAR) Urine pH (5-6) Ur Specific [place] (1.005-1.025) Urine Protein (Negative) Urine Ketones (NEGATIVE) Urine Blood (0-5) Bj/ul Urine Nitrite (NEGATIVE) Urine Bilirubin (NEGATIVE) Urine Urobilinogen (0-1) mg/dL Ur Leukocyte Esterase (NEGATIVE) Urine WBC (Auto) (0-5) /HPF Urine RBC (Auto) (0-2) /HPF U Epithel Cells (Auto) (FEW) /HPF Urine Bacteria (Auto) (NEGATIVE) /HPF Urine Mucus (Auto) (NEGATIVE) /HPF Urine Culture Reflexed (NO) Urine Glucose (NEGATIVE) mg/dL Monoscreen NEGATIVE (Negative) Influenza Type A Ag NEGATIVE (NEGATIVE) Influenza Type B Ag NEGATIVE (NEGATIVE) Group A Strep Antibody NOT DETECTED (NEGATIVE) 09/11/21 09/11/21 09/11/21 Range/Units 21:00 21:00 20:42 WBC 4.2 (4.0-10.5) K/mm3 RBC 4.50 (4.1-5.4) M/mm3 Hgb 14.1 (12.0-16.0) gm/dl Hct 45.2 (35-47) % MCV 100.4 H (78-100) fl MCH 31.3 (26-32) pg MCHC 31.2 L (32-36) g/dl RDW 13.8 (11.5-14.0) % Plt Count 175 (150-450) K/mm3 MPV 10.8 (7.5-11.0) fl Gran % 49.8 (36.0-66.0) % Eos # (Auto) 0.03 (0-0.5) Absolute Lymphs (auto) 1.49 (1.0-4.6) Absolute Monos (auto) 0.56 (0.0-1.3) Lymphocytes % 35.8 (24.0-44.0) % Monocytes % 13.5 H (0.0-12.0) % Eosinophils % 0.7 (0.00-5.0) % Basophils % 0.2 (0.0-0.4) % Absolute Granulocytes 2.07 (1.4-6.9) Basophils # 0.01 (0-0.4) Sodium 138 (137-145) mmol/L Potassium 4.3 (3.5-5.1) mmol/L Chloride 98 (98-107) mmol/L Carbon Dioxide 29 (22-30) mmol/L Anion Gap 15.9 H (5-15) MEQ/L BUN 19 H (7-17) mg/dL Creatinine 0.77 (0.52-1.04) mg/dL Estimated GFR > 60.0 ML/MIN Glucose 95 (74-106) mg/dL Lactic Acid 3.1 H (0.4-2.0) Calcium 9.2 (8.4-10.2) mg/dL Total Bilirubin 0.30 (0.2-1.3) mg/dL AST 55 H (14-36) U/L ALT 57 H (0-35) U/L Alkaline Phosphatase 129 H (38-126) U/L Serum Total Protein 7.5 (6.3-8.2) g/dL Albumin 4.7 (3.5-5.0) g/dL Amylase 66 (30-110) U/L Lipase 148 (23-300) U/L Urine Color (YELLOW) Urine Appearance (CLEAR) Urine pH (5-6) Ur Specific [place] (1.005-1.025) Urine Protein (Negative) Urine Ketones (NEGATIVE) Urine Blood (0-5) Bj/ul Urine Nitrite (NEGATIVE) Urine Bilirubin (NEGATIVE) Urine Urobilinogen (0-1) mg/dL Ur Leukocyte Esterase (NEGATIVE) Urine WBC (Auto) (0-5) /HPF Urine RBC (Auto) (0-2) /HPF U Epithel Cells (Auto) (FEW) /HPF Urine Bacteria (Auto) (NEGATIVE) /HPF Urine Mucus (Auto) (NEGATIVE) /HPF Urine Culture Reflexed (NO) Urine Glucose (NEGATIVE) mg/dL Monoscreen (Negative) Influenza Type A Ag (NEGATIVE) Influenza Type B Ag (NEGATIVE) Group A Strep Antibody (NEGATIVE) 09/11/21 Range/Units 20:26 WBC (4.0-10.5) K/mm3 RBC (4.1-5.4) M/mm3 Hgb (12.0-16.0) gm/dl Hct (35-47) % MCV (78-100) fl MCH (26-32) pg MCHC (32-36) g/dl RDW (11.5-14.0) % Plt Count (150-450) K/mm3 MPV (7.5-11.0) fl Gran % (36.0-66.0) % Eos # (Auto) (0-0.5) Absolute Lymphs (auto) (1.0-4.6) Absolute Monos (auto) (0.0-1.3) Lymphocytes % (24.0-44.0) % Monocytes % (0.0-12.0) % Eosinophils % (0.00-5.0) % Basophils % (0.0-0.4) % Absolute Granulocytes (1.4-6.9) Basophils # (0-0.4) Sodium (137-145) mmol/L Potassium (3.5-5.1) mmol/L Chloride (98-107) mmol/L Carbon Dioxide (22-30) mmol/L Anion Gap (5-15) MEQ/L BUN (7-17) mg/dL Creatinine (0.52-1.04) mg/dL Estimated GFR ML/MIN Glucose (74-106) mg/dL Lactic Acid (0.4-2.0) Calcium (8.4-10.2) mg/dL Total Bilirubin (0.2-1.3) mg/dL AST (14-36) U/L ALT (0-35) U/L Alkaline Phosphatase (38-126) U/L Serum Total Protein (6.3-8.2) g/dL Albumin (3.5-5.0) g/dL Amylase (30-110) U/L Lipase (23-300) U/L Urine Color YELLOW (YELLOW) Urine Appearance SLIGHTLY CLOUDY (CLEAR) Urine pH 5.0 (5-6) Ur Specific [place] 1.029 (1.005-1.025) Urine Protein 30 (Negative) Urine Ketones TRACE (NEGATIVE) Urine Blood NEGATIVE (0-5) Bj/ul Urine Nitrite NEGATIVE (NEGATIVE) Urine Bilirubin NEGATIVE (NEGATIVE) Urine Urobilinogen NEGATIVE (0-1) mg/dL Ur Leukocyte Esterase NEGATIVE (NEGATIVE) Urine WBC (Auto) NONE (0-5) /HPF Urine RBC (Auto) NONE (0-2) /HPF U Epithel Cells (Auto) NONE (FEW) /HPF Urine Bacteria (Auto) NONE (NEGATIVE) /HPF Urine Mucus (Auto) SLIGHT (NEGATIVE) /HPF Urine Culture Reflexed NO (NO) Urine Glucose NEGATIVE (NEGATIVE) mg/dL Monoscreen (Negative) Influenza Type A Ag (NEGATIVE) Influenza Type B Ag (NEGATIVE) Group A Strep Antibody (NEGATIVE) - Progress Progress: improved Air Movement: good Progress Note: 09/11/21 21:08 Chest x-ray shows no acute cardiopulmonary process. Blood Culture(s) Obtained: No Antibiotics given: No Counseled pt/family regarding: lab results, diagnosis, need for follow-up, rad results - Departure Departure Disposition: Home Clinical Impression: Viral illness Condition: Stable Critical Care Time: No Referrals: MAYNOR MANUEL MD [Primary Care Provider] - Follow up/PCP as directed Additional Instructions: Drink plenty of fluids. Quarantine yourself until the results of your COVID-19 test returned Forms: Work/School Release Form Prescriptions: Ondansetron ODT 4 MG [Zofran Odt 4 mg] 4 mg PO Q6H PRN PRN #10 tablet PRN Reason: Vomiting Hydrocodone/Acetaminophen [Hydrocodone-Acetamn 7.5-325/15] 10 ml PO Q8H PRN PRN #120 ml MDD 30 ml PRN Reason: Cough
[2021-09-11] MEDS ORDERED: Sodium Chloride 0.9% 1000 ML 1,000 ML IV STA (20:20)
[2021-09-11] MEDS ORDERED: Zofran 4 MG/2 ML VIAL IV ONE (20:20)
[2021-09-11] MEDS ORDERED: Zofran 4 MG/2 ML VIAL ONE (20:47)
[2021-09-11] MEDS ORDERED: Sodium Chloride 0.9% 1000 ML 1,000 ML ONE (20:48)
[2021-09-11 21:39] LABS: Absolute Neutrophil Ct (ANC) 2.07 (1.4-6.9); BASOPHIL % 0.2 % (0.0-0.4); Basophil (Absolute #) 0.01 (0-0.4); Eosinophil % 0.7 % (0.00-5.0); Eosinophil (Absolute #) 0.03 (0-0.5); Hematocrit 45.2 % (35-47); Hemoglobin 14.1 gm/dl (12.0-16.0); Lymphocyte (Absolute #) 1.49 (1.0-4.6); Lymphocytes % 35.8 % (24.0-44.0); Mean Cell Volume 100.4 fl (78-100); Mean Corpuscular Hemoglobin 31.3 pg (26-32); Mean Corpuscular Hgb Concent. 31.2 g/dl (32-36); Mean Platelet Volume 10.8 fl (7.5-11.0); Monocyte (Absolute #) 0.56 (0.0-1.3); Monocytes % 13.5 % (0.0-12.0); Neutrophil % 49.8 % (36.0-66.0); Platelet Count 175 K/mm3 (150-450); Red Cell Distribution Width 13.8 % (11.5-14.0); White Blood Count 4.2 K/mm3 (4.0-10.5)
[2021-09-11 22:12] LABS: ALBUMIN 4.7 g/dL (3.5-5.0); ALKALINE PHOSPHATASE 129 U/L (38-126); AMYLASE 66 U/L (30-110); ANION GAP 15.9 MEQ/L (5-15); BLOOD UREA NITROGEN 19 mg/dL (7-17); CHLORIDE 98 mmol/L (98-107); Calcium 9.2 mg/dL (8.4-10.2); Carbon Dioxide 29 mmol/L (22-30); Creatinine 1 0.77 mg/dL (0.52-1.04); EST GLOMERULAR FILTRATION RATE > 60.0 ML/MIN; Glucose 95 mg/dL (74-106); LIPASE 148 U/L (23-300); Potassium 4.3 mmol/L (3.5-5.1); SGOT/AST 55 U/L (14-36); SGPT/ALT 57 U/L (0-35); SODIUM 138 mmol/L (137-145); Total Protein 7.5 g/dL (6.3-8.2)
[2021-09-11 22:13] LABS: Appearance SLIGHTLY CLOUDY (CLEAR); Bilirubin NEGATIVE (NEGATIVE); Blood NEGATIVE Ery/ul (0-5); Glucose NEGATIVE (NEGATIVE); Ketones TRACE (NEGATIVE); Leukocyte Esterase NEGATIVE (NEGATIVE); Mucus SLIGHT /HPF (NEGATIVE); Nitrite NEGATIVE (NEGATIVE); Protein,Urine Dip 30 (Negative); Specific Gravity 1.029 (1.005-1.025); Urobilinogen NEGATIVE mg/dL (0-1)
[2021-09-11 22:33] LABS: INFLUENZA A NEGATIVE (NEGATIVE); INFLUENZA B NEGATIVE (NEGATIVE)
[2021-09-11 23:08] VITALS: BP 139/92; PULSE 72; O2SAT 92
--- NOTE | 2021-09-12 09:01 | XRAY ---
Indication: Cough and congestion. Suspect Covid 19. Comparison: November 24, 2019. Portable chest demonstrates new minimal left base subsegmental atelectasis/scarring. Remaining lungs clear again with incidental tiny calcified granulomas heart not enlarged. Bony thorax intact.
== END 2021-09-11 23:29 | disposition home or self-care (01) ==
LOC: ED 19:43
DX: B34.9 Viral infection, unspecified (principal); M79.10 Myalgia, unspecified site; M25.50 Pain in unspecified joint; R11.0 Nausea; R10.84 Generalized abdominal pain; R19.7 Diarrhea, unspecified; Z72.0 Tobacco use; Z79.891 Long term (current) use of opiate analgesic
CPT/HCPCS: 36000; 36415; 71045; 80053; 81001; 82150; 83605; 83690; 85025; 86308; 87040; 87400; 87651; 96374; 99284; U0003; J2405

== ENCOUNTER 2021-09-14 14:25 | Observation (INO) | payer OTHER ==
[2021-09-14] MEDS ORDERED: HYDROCODONE-CHLORPHEN ER SUSP PO PRN (15:27)
[2021-09-14] MEDS ORDERED: TYLENOL EXTRA STRENGTH 500 MG PO PRN (15:27)
[2021-09-14] MEDS ORDERED: Zofran 4 MG/2 ML VIAL IV PRN (15:27)
[2021-09-14 16:26] LABS: ALBUMIN 4.4 g/dL (3.5-5.0); ALKALINE PHOSPHATASE 132 U/L (38-126); ANION GAP 15.2 MEQ/L (5-15); BLOOD UREA NITROGEN 10 mg/dL (7-17); CHLORIDE 101 mmol/L (98-107); Calcium 8.7 mg/dL (8.4-10.2); Carbon Dioxide 22 mmol/L (22-30); Creatinine 1 0.63 mg/dL (0.52-1.04); EST GLOMERULAR FILTRATION RATE > 60.0 ML/MIN; Glucose 103 mg/dL (74-106); SGOT/AST 40 U/L (14-36); SGPT/ALT 55 U/L (0-35); SODIUM 135 mmol/L (137-145); Total Protein 7.5 g/dL (6.3-8.2)
--- NOTE | 2021-09-14 16:37 | XRAY ---
Indication: Covid 19 pneumonia. Comparison: September 11, 2021. Portable chest demonstrates new mild hazy bibasilar interstitial alveolar opacities without consolidation/large effusion. Remaining heart and upper lungs unremarkable.
[2021-09-14] MEDS: DECADRON 10MG INJ. IV SCH (16:41)
[2021-09-14] MEDS: ENOXAPARIN SODIUM SQ SCH (16:42)
[2021-09-14 16:43] LABS: Hematocrit 42.8 % (35-47); Hemoglobin 13.6 gm/dl (12.0-16.0); Mean Cell Volume 97.9 fl (78-100); Mean Corpuscular Hemoglobin 31.1 pg (26-32); Mean Corpuscular Hgb Concent. 31.8 g/dl (32-36); Mean Platelet Volume 11.2 fl (7.5-11.0); Platelet Count 150 K/mm3 (150-450); Red Blood Count 4.37 M/mm3 (4.1-5.4); Red Cell Distribution Width 13.5 % (11.5-14.0); White Blood Count 3.6 K/mm3 (4.0-10.5)
[2021-09-14] MEDS: Sodium Chloride 0.9% 1000 ML 1,000 ML IV SCH (16:44)
[2021-09-14] MEDS ORDERED: REMDESIVIR 200 MG in Sodium Chloride 0.9% 250 ML 250 ML IV ONE (17:00)
[2021-09-14] MEDS ORDERED: Protonix 40MG Tablet PO SCH (17:00)
[2021-09-14] MEDS: Lexapro 10 MG PO SCH (17:50)
[2021-09-14] MEDS: lamISIL 250 MG PO SCH (17:50)
[2021-09-15] MEDS: Sodium Chloride 0.9% 1000 ML 1,000 ML IV SCH (05:12)
[2021-09-15 07:35] LABS: Hematocrit 43.1 % (35-47); Hemoglobin 13.5 gm/dl (12.0-16.0); Mean Cell Volume 98.4 fl (78-100); Mean Corpuscular Hemoglobin 30.8 pg (26-32); Mean Corpuscular Hgb Concent. 31.3 g/dl (32-36); Mean Platelet Volume 11.3 fl (7.5-11.0); Platelet Count 155 K/mm3 (150-450); Red Blood Count 4.38 M/mm3 (4.1-5.4); Red Cell Distribution Width 13.4 % (11.5-14.0); White Blood Count 3.4 K/mm3 (4.0-10.5)
[2021-09-15 07:47] LABS: ALBUMIN 4.1 g/dL (3.5-5.0); ALKALINE PHOSPHATASE 117 U/L (38-126); ANION GAP 12.3 MEQ/L (5-15); BLOOD UREA NITROGEN 14 mg/dL (7-17); CHLORIDE 105 mmol/L (98-107); Calcium 8.9 mg/dL (8.4-10.2); Carbon Dioxide 26 mmol/L (22-30); Creatinine 1 0.59 mg/dL (0.52-1.04); EST GLOMERULAR FILTRATION RATE > 60.0 ML/MIN; Glucose 111 mg/dL (74-106); Potassium 4.8 mmol/L (3.5-5.1); SGOT/AST 44 U/L (14-36); SGPT/ALT 57 U/L (0-35); SODIUM 138 mmol/L (137-145); Total Protein 7.2 g/dL (6.3-8.2)
[2021-09-15] MEDS: DECADRON 10MG INJ. IV SCH (07:47)
[2021-09-15] MEDS: ENOXAPARIN SODIUM SQ SCH (07:47)
[2021-09-15] MEDS: lamISIL 250 MG PO SCH (07:48)
[2021-09-15] MEDS: Lexapro 10 MG PO SCH (07:48)
[2021-09-15 08:01] VITALS: BP 105/50; PULSE 67; O2SAT 90
[2021-09-15 08:33] LABS: Slide Review YES
[2021-09-15] MEDS ORDERED: REMDESIVIR 100 MG in Sodium Chloride 0.9% 100 ML BAG 100 ML IV SCH (10:00)
[2021-09-15] MEDS ORDERED: Protonix 40MG Tablet PO SCH (22:00)
[2021-09-15] MEDS ORDERED: Lexapro 10 MG PO SCH (22:00)
[2021-09-15] MEDS ORDERED: lamISIL 250 MG PO SCH (22:00)
--- NOTE | 2021-09-17 12:14 | HP ---
CHIEF COMPLAINT: Shortness of breath, cough, diarrhea, positive COVID test five days ago. HISTORY OF PRESENT ILLNESS: Three weeks ago she came to the emergency room and COVID tested positive and the chest x-ray showed a little bit of COVID findings. She went to the doctor's office to talk to someone to get antibodies although she is past that window. Her daughter who has Down's syndrome with her. The patient is quite ill and will be admitted so will need social worker delinquency prevention to help with her daughter at this time. Her O2 saturations were in the 80's in the emergency room. MEDICATIONS: Lexapro 10 mg, Protonix 40, Terbinafine 250 mg q.d. ALLERGIES: IBUPROFEN. PAST MEDICAL HISTORY: Reflux, mild depression, anxiety, gastroesophageal reflux disease. PAST SURGICAL HISTORY: FAMILY HISTORY: She lives with her and her 46-year-old daughter who is also home with KRISTOPHER. SOCIAL HISTORY: The patient quit smoking a long time ago. REVIEW OF SYSTEMS: HEENT: No problems hearing or seeing. CHEST: Short of breath on exertion. No pulmonary embolism. CVS: No exertional chest pain. ABDOMEN: No nausea or vomiting. Diarrhea once and that stopped. PHYSICAL EXAMINATION: She came to the emergency room. VITAL SIGNS: Pulse 75, temperature 97.8F, respiratory rate 18. O2 saturation on 2 liters was 93%. HEENT: She can drink, eating well. No loss of taste. NECK: Supple without adenopathy. CHEST: Crackles bilateral. CVS: No murmurs or gallops. ABDOMEN: Slightly tender lower abdomen. EXTREMITIES: No cyanosis. LAB DATA AND TESTS: Blood work: Glucose 111, creatinine 0.59. Liver enzymes minimally elevated probably due to COVID. White count 3.4 secondary to COVID. Chest x-ray showed mild hazy bibasilar interstitial alveolar opacities. IMPRESSION: A patient with mild COVID pneumonia, mild COVID gastroenteritis. PLAN: Admission for observation. She is going to stay in a room with her child who has COVID and she does have Down's syndrome.
== END 2021-09-15 10:47 | disposition home or self-care (01) ==
LOC: MED SURG 14:25
PROVIDERS: ADMIT Family Medicine; ATTEND Family Medicine
DX: U07.1 COVID-19 (principal); J12.82 Pneumonia due to coronavirus disease 2019; K52.9 Noninfective gastroenteritis and colitis, unspecified; Z79.899 Other long term (current) drug therapy
CPT/HCPCS: 36415; 71045; 80053; 85027; 85379; 93268; 94762; G0378; J1100; J1650; A9270-GY

== ENCOUNTER 2023-02-23 03:02 | Emergency (ER) | payer OTHER ==
[2023-02-23 03:24] LABS: ADD URINE CULTURE? YES (NO); Appearance Clear (Clear); Bacteria None Seen /HPF (None Seen); Bilirubin Small (Negative); Blood Negative (Negative); Epithelial Cells None Seen /HPF (None Seen); Glucose, Urine Negative (Negative); Hyaline Casts NONE SEEN /LPF (0-2); Ketones Negative (Negative); Leukocyte Esterase Small (Negative); Nitrite Positive (Negative); Protein,Urine Dip Trace (Negative); RBC 0-2 /HPF (0-5); Specific Gravity 1.015 (1.005-1.030); WBC 0-2 /HPF (0-5)
[2023-02-23 03:25] VITALS: O2SAT 96
[2023-02-23] MEDS ORDERED: Levofloxacin 500 MG Tablet PO ONE (03:40)
[2023-02-23] MEDS ORDERED: Flagyl 500 MG PO ONE (03:40)
--- NOTE | 2023-02-23 03:45 | ERPHSYRPT ---
- History of Present Illness Time Seen by Provider: 02/23/23 03:30 Source: patient Exam Limitations: no limitations Patient Subjective Stated Complaint: pt states she has been having pain with urination and c/o burning, sharp pain in vaginal area. Triage Nursing Assessment: pt alert and oriented, answers questions approp. pt ambulatory with steady gait noted. respirations nonlabored. skin warm and dry. urine clear, orange. Physician History: This is a 52-year-old white female with dysuria and yellowish vaginal discharge. Timing/Duration: day(s) (For few days) Activites at Onset: none Onset Location: vaginal Pain Radiation: none Severity of Pain-Max: mild Prior abdominal problems: recent trauma Sexual intercourse history: non-contributory Modifying Factors: Improves With: nothing Associated Symptoms: dysuria, vaginal discharge (Whitish to yellowish) Allergies/Adverse Reactions: ibuprofen Adverse Reaction (Verified 02/23/23 03:26) can not take d/t barretts esophagus and gi problems Home Medications: Escitalopram Oxalate [Lexapro] 10 mg PO HS 09/14/21 [History] PANTOPRAZOLE 40 mg Tablet [Protonix 40MG Tablet] 40 mg PO QPM 09/14/21 [History] Hx Tetanus, Diphtheria Vaccination/Date Given: Yes Hx Influenza Vaccination/Date Given: Yes Hx Pneumococcal Vaccination/Date Given: No Travel Risk - International Travel Have you traveled outside of the country in past 3 weeks: No - Coronavirus Screening Are you exhibiting any of the following symptoms?: No Close contact with a COVID-19 positive Pt in past 14-21 Days: No - Vaccine Status Have you recieved a Covid-19 vaccination: No - Review of Systems Constitutional: No Symptoms Eyes: No Symptoms Ears, Nose, & Throat: No Symptoms Respiratory: No Symptoms Cardiac: No Symptoms Abdominal/Gastrointestinal: No Symptoms Genitourinary Symptoms: Dysuria, Vaginal Discharge (Whitish to yellowish) Musculoskeletal: No Symptoms Skin: No Symptoms Neurological: No Symptoms Psychological: No Symptoms Endocrine: No Symptoms Hematologic/Lymphatic: No Symptoms Immunological/Allergic: No Symptoms - Past Medical History Pertinent Past Medical History: Yes Neurological History: No Pertinent History ENT History: No Pertinent History Cardiac History: No Pertinent History Respiratory History: Asthma Endocrine Medical History: No Pertinent History Musculoskeletal History: No Pertinent History GI Medical History: Colorectal Cancer, GERD, Hernia, Polyps, Ulcer, Other History: Other Psycho-Social History: No Pertinent History Female Reproductive Disorders: Abnormal Uterine Bleeding Other Medical History: R KNEE SURGERY 2013-"reconstruction of knee cap". barretts esophagus - Past Surgical History Past Surgical History: Yes Neuro Surgical History: No Pertinent History Cardiac: No Pertinent History Respiratory: No Pertinent History Gastrointestinal: Cholecystectomy Genitourinary: No Pertinent History Musculoskeletal: Orthopedic Surgery Female Surgical History: Hysterectomy Other Surgical History: hiatal hernia repair. right knee reconstructions, right rotator cuff surgery, colonoscopy and polypectomy - Social History Smoking Status: Current every day smoker How long have you smoked: 30yrs Exposure to second hand smoke: Yes Drug Use: none Patient Lives Alone: No Significant Family History: no pertinent family hx - Nursing Vital Signs Nursing Vital Signs: Initial Vital Signs Temperature 98.7 F 02/23/23 03:10 Pulse Rate 77 02/23/23 03:10 Respiratory Rate 16 02/23/23 03:10 Blood Pressure 154/82 02/23/23 03:10 O2 Sat by Pulse Oximetry 96 02/23/23 03:10 Pain Scale Pain Intensity 8 - Physical Exam General Appearance: no apparent distress, alert, anxiety Eye Exam: PERRL/EOMI, eyes nml inspection Ears, Nose, Throat Exam: normal ENT inspection, moist mucous membranes Neck Exam: normal inspection, non-tender, supple, full range of motion Respiratory Exam: No chest tenderness, No respiratory distress Gastrointestinal/Abdomen Exam: No tenderness Pelvic Exam: not done Rectal Exam: not done Back Exam: normal inspection, normal range of motion, No CVA tenderness, No vertebral tenderness Extremity Exam: normal inspection, normal range of motion, pelvis stable Neurologic Exam: alert, oriented x 3, cooperative, 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 tested, normal mood/affect, nml cerebellar function, nml station & gait, sensation nml Skin Exam: normal color, warm, dry Lymphatic Exam: No adenopathy SpO2 Interpretation: normal SpO2: 96 O2 Delivery: Room Air - Course Nursing assessment & vital signs reviewed: Yes Ordered Tests: Active Orders 24 hr Category Date Time Status CULTURE,URINE Stat Lab 02/23/23 03:09 Received UA W/RFX UR CULTURE Stat Lab 02/23/23 03:09 Completed Lab/Rad Data: Laboratory Results 02/23/23 Range/Units 03:09 Urine Color [place] A (Yellow) Urine Appearance Clear (Clear) Urine pH 5.0 (4.6-8.0) Ur Specific [place] 1.015 (1.005-1.030) Urine Protein Trace A (Negative) Urine Glucose (UA) Negative (Negative) mg/dL Urine Ketones Negative (Negative) Urine Blood Negative (Negative) Urine Nitrite Positive A (Negative) Urine Bilirubin Small A (Negative) Urine Urobilinogen 1.0 A (0.2) mg/dL Ur Leukocyte Esterase Small A (Negative) U Hyaline Cast (Auto) NONE SEEN (0-2) /LPF Urine Microscopic RBC 0-2 (0-5) /HPF Urine Microscopic WBC 0-2 (0-5) /HPF Ur Epithelial Cells None Seen (None Seen) /HPF Urine Bacteria None Seen (None Seen) /HPF Urine Culture Reflexed YES (NO) - Progress Progress: unchanged Air Movement: good Progress Note: 02/23/23 03:44 Patient's medical issue is 1 of low complexity. Level of complexity and the work-up performed was based on review of the patient's past medical history, review of the patient's medication list, review of the patient's drug allergy list, history of present illness and physical findings on examination. Work-up performed as a urinalysis. This patient has what appears to be urinary tract infection and bacterial vaginosis. We will provide her with Levaquin orally and Flagyl orally now and I will remotely send Flagyl and Cipro prescription to her pharmacy Antibiotics given: Yes Counseled pt/family regarding: lab results, diagnosis, need for follow-up Medical Desision Making - Diagnostic Testing Diagnostic test were ordered, analyzed, and reviewed by me: Yes - Risk of complications The pt has a mod risk of morbidity or mortality based on: Need for prescription drug management - Departure Departure Disposition: Home Clinical Impression: UTI (urinary tract infection), Bacterial vaginosis Condition: Stable Critical Care Time: No Critical Care Time(excluding separately billable procedures): Critical 30-74 mins Referrals: MAYNOR MANUEL MD [Primary Care Provider] - Follow up/PCP as directed Additional Instructions: Drink plenty of fluids. Use Tylenol for fever and pain control. Take your antibiotics as prescribed. Follow-up with your primary care provider for further evaluation and management. Prescriptions: Ciprofloxacin [Cipro 500 MG] 500 mg PO BID #14 tablet Metronidazole 500 mg [Flagyl 500 MG] 500 mg PO TID #21 tablet
[2023-02-23] MEDS ORDERED: Levofloxacin 500 MG Tablet ONE (03:51)
[2023-02-23] MEDS ORDERED: Flagyl 500 MG ONE (03:51)
[2023-02-23 04:09] VITALS: BP 123/73; PULSE 74
== END 2023-02-23 04:08 | disposition home or self-care (01) ==
LOC: ED 03:02
DX: N39.0 Urinary tract infection, site not specified (principal); N76.0 Acute vaginitis; R30.0 Dysuria; Z79.899 Other long term (current) drug therapy; Z28.310 Unvaccinated for COVID-19; Z72.0 Tobacco use
CPT/HCPCS: 81001; 87086; 99283; 99291; A9270-GY